=== PATIENT | male | born 1960 | race Caucasian/White ===

== ENCOUNTER 2019-09-04 12:53 | Observation (INO) | payer OTHER ==
[~2019-09-04] VITALS: Ht 182.9 cm; Wt 105.3 kg
[2019-09-04] MEDS ORDERED: ONDANSETRON PF 4 MG/2 ML VIAL. IV ONE (13:00)
--- NOTE | 2019-09-04 13:05 | EKG ---
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
[2019-09-04 13:27] LABS: BASO % 0 % (0-3); EOS % 0 % (0-3); HEMATOCRIT 47.8 % (39.0-53.0); HEMOGLOBIN 16.4 g/dL (13.0-17.5); LYMPH # 1.5 x10^3/uL (1.0-4.8); LYMPH % 17 % (24-48); MEAN CORPUSCULAR HEMOGLOBIN 30 pg (25-35); MEAN CORPUSCULAR HGB CONC 34 g/dL (31-37); MEAN CORPUSCULAR VOLUME 88 fL (79-100); MONO # 0.6 x10^3/uL (0.0-1.1); MONO % 7 % (0-9); NEUT # 6.6 x10^3uL (1.8-7.7); NEUT % 75 % (31-73); PLATELET COUNT 281 x10^3/uL (140-400); RED BLOOD COUNT 5.45 x10^6/uL (4.30-5.70); RED CELL DISTRIBUTION WIDTH 13.7 % (11.5-14.5); WHITE BLOOD COUNT 8.7 x10^3/uL (4.0-11.0)
[2019-09-04 13:28] LABS: CALCIUM 10.2 mg/dL (8.5-10.1); CREATININE 1.2 mg/dL (0.7-1.3); POTASSIUM 4.2 mmol/L (3.5-5.1)
[2019-09-04 13:40] LABS: ALBUMIN 4.4 g/dL (3.4-5.0); ALBUMIN/GLOBULIN RATIO 1.3 (1.0-1.7); TOTAL BILIRUBIN 0.6 mg/dL (0.2-1.0); TOTAL PROTEIN 7.8 g/dL (6.4-8.2)
--- NOTE | 2019-09-04 13:57 | RAD ---
EXAM: CHEST AP ONLY INDICATION: Reason: chest pain / Spl. Instructions: / History: . TECHNIQUE: Single view COMPARISON: 05/05/2019 chest x-ray FINDINGS: The heart size is normal. The great vessels appear unremarkable. There is no hilar or mediastinal mass. The lungs are clear. There is no pleural effusion or pneumothorax. There are no significant osseous abnormalities. IMPRESSION: No active cardiopulmonary disease. Electronically signed by: Delroy Zepeda MD (09/04/2019 1:55 PM) [id number]
--- NOTE | 2019-09-04 14:14 | PHYS DOC ---
Past History Past Medical History: Dementia, Hypertension, Stroke Past Surgical History: No Surgical History Alcohol Use: None General Adult EDM: Chief Complaint: CHEST PAIN HPI: HPI: Patient is a 58-year-old male who presents with approximately 1 hour of left- sided chest pain that he describes as a tightness that radiates into his left arm. He became a little bit short of breath. He denies any nausea or diaphoresis. He states he is never really had any thing like this happen before. He was given aspirin by EMS in route. He is currently pain-free. [] Review of Systems: Review of Systems: Constitutional: Denies fever or chills Eyes: Denies change in visual acuity HENT: Denies nasal congestion or sore throat Respiratory: Denies cough or shortness of breath Cardiovascular: Per HPI GI: Denies abdominal pain, nausea, vomiting, bloody stools or diarrhea : Denies dysuria Musculoskeletal: Denies back pain or joint pain Integument: Denies rash Neurologic: Denies headache, focal weakness or sensory changes Endocrine: Denies polyuria or polydipsia Lymphatic: Denies swollen glands Psychiatric: Denies depression or anxiety Heart Score: HEART Score for Chest Pain: HEART Score for Chest Pain Response (Comments) Value History Highly Suspicious 2 ECG Nonspecific Repolarizatio 1 Age >45 - < 65 1 Risk Factors 1 or 2 Risk Factors 1 Troponin < Normal Limit 0 Total 5 Risk Factors: Risk Factors: DM, Current or recent (<one month) smoker, HTN, HLP, family history of CAD, obesity. Risk Scores: Score 0 - 3: 2.5% MACE over next 6 weeks - Discharge Home Score 4 - 6: 20.3% MACE over next 6 weeks - Admit for Clinical Observation Score 7 - 10: 72.7% MACE over next 6 weeks - Early Invasive Strategies Current Medications: Current Meds: Current Medications Medications (Trade) Dose Ordered Sig/Ariane Start Time Stop Time Status Last Admin Dose Admin Fentanyl Citrate (Fentanyl 2ml Vial) 50 mcg 1X ONCE 09/04/19 13:00 09/04/19 13:07 DC Ondansetron HCl (Zofran) 4 mg 1X ONCE 09/04/19 13:00 09/04/19 13:07 DC Allergies: Allergies: Allergies Coded Allergies Type Severity Reaction Last Updated Verified No Known Drug Allergies 05/05/19 No Physical Exam: PE: Constitutional: Well developed, well nourished, no acute distress, non-toxic domi earance. [] HENT: Normocephalic, atraumatic, bilateral external ears normal, oropharynx moist, no oral exudates, nose normal. [] Eyes: PERRLA, EOMI, conjunctiva normal, no discharge. [] Neck: Normal range of motion, no tenderness, supple, no stridor. [] Cardiovascular:Heart rate regular rhythm, no murmur [] Lungs & Thorax: Bilateral breath sounds clear to auscultation [] Abdomen: Bowel sounds normal, soft, no tenderness, no masses, no pulsatile masses. [] Skin: Warm, dry, no erythema, no rash. [] Back: No tenderness, no CVA tenderness. [] Extremities: No tenderness, no cyanosis, no clubbing, ROM intact, no edema. [] Neurologic: Alert and oriented X 3, normal motor function, normal sensory function, no focal deficits noted. [] Psychologic: Affect normal, judgement normal, mood normal. [] Current Patient Data: Labs: Laboratory Tests Test 09/04/19 12:53 White Blood Count 8.7 x10^3/uL (4.0-11.0) Red Blood Count 5.45 x10^6/uL (4.30-5.70) Hemoglobin 16.4 g/dL (13.0-17.5) Hematocrit 47.8 % (39.0-53.0) Mean Corpuscular Volume 88 fL (79-100) Mean Corpuscular Hemoglobin 30 pg (25-35) Mean Corpuscular Hemoglobin Concent 34 g/dL (31-37) Red Cell Distribution Width 13.7 % (11.5-14.5) Platelet Count 281 x10^3/uL (140-400) Neutrophils (%) (Auto) 75 % (31-73) H Lymphocytes (%) (Auto) 17 % (24-48) L Monocytes (%) (Auto) 7 % (0-9) Eosinophils (%) (Auto) 0 % (0-3) Basophils (%) (Auto) 0 % (0-3) Neutrophils # (Auto) 6.6 x10^3uL (1.8-7.7) Lymphocytes # (Auto) 1.5 x10^3/uL (1.0-4.8) Monocytes # (Auto) 0.6 x10^3/uL (0.0-1.1) Eosinophils # (Auto) 0.0 x10^3/uL (0.0-0.7) Basophils # (Auto) 0.0 x10^3/uL (0.0-0.2) Sodium Level 143 mmol/L (136-145) Potassium Level 4.2 mmol/L (3.5-5.1) Chloride Level 104 mmol/L (98-107) Carbon Dioxide Level 29 mmol/L (21-32) Anion Gap 10 (6-14) Blood Urea Nitrogen 22 mg/dL (8-26) Creatinine 1.2 mg/dL (0.7-1.3) Estimated GFR (Cockcroft-Gault) 62.0 BUN/Creatinine Ratio 18 (6-20) Glucose Level 110 mg/dL (70-99) H Calcium Level 10.2 mg/dL (8.5-10.1) H Total Bilirubin 0.6 mg/dL (0.2-1.0) Aspartate Amino Transferase (AST) 18 U/L (15-37) Alanine Aminotransferase (ALT) 38 U/L (16-63) Alkaline Phosphatase 80 U/L (46-116) Troponin I Quantitative < 0.017 ng/mL (0-0.055) SO-Kcz-F-Type Natriuretic Peptide 46 pg/mL (0-124) Total Protein 7.8 g/dL (6.4-8.2) Albumin 4.4 g/dL (3.4-5.0) Albumin/Globulin Ratio 1.3 (1.0-1.7) Lipase 165 U/L (73-393) Vital Signs: Vital Signs Date Time Temp Pulse Resp B/P (MAP) Pulse Ox O2 Delivery O2 Flow Rate FiO2 09/04/19 13:01 97.7 65 18 178/90 (119) 98 EKG: EKG: EKG: Normal sinus rhythm rate of [address]-T changes [] Radiology/Procedures: Radiology/Procedures: [] Impressions: PROCEDURE: CHEST AP ONLY EXAM: CHEST AP ONLY INDICATION: Reason: chest pain / Spl. Instructions: / History: . TECHNIQUE: Single view COMPARISON: 05/05/2019 chest x-ray FINDINGS: The heart size is normal. The great vessels appear unremarkable. There is no hilar or mediastinal mass. The lungs are clear. There is no pleural effusion or pneumothorax. There are no significant osseous abnormalities. IMPRESSION: No active cardiopulmonary disease. Course & Med Decision Making: Course & Med Decision Making Pertinent Labs and Imaging studies reviewed. (See chart for details) [] Dragon Disclaimer: Dragon Disclaimer: This electronic medical record was generated, in whole or in part, using a voice recognition dictation system. Departure Departure: Impression: Primary Impression: Chest pain Qualified Codes: R07.9 - Chest pain, unspecified Disposition: 09 ADMITTED INPATIENT Condition: STABLE Referrals: LUKE DELGADO (PCP) Justification of Admission: Justification of Admission: Justification of Admission Dx: Yes Angina: New-Onset KEE GILBERT DO Sep 04, 2019 14:14
[2019-09-04] MEDS ORDERED: NITROGLYCERIN SUBLINGUAL 0.4 MG BOTTLE OF 25. SL PRN (14:15)
[2019-09-04] MEDS ORDERED: ONDANSETRON PF 4 MG/2 ML VIAL. IVP PRN (14:15)
[2019-09-04] MEDS ORDERED: ACETAMINOPHEN 325 MG TABLET PO PRN (14:15)
[2019-09-04 15:14] VITALS: BP 176/120
[2019-09-04] MEDS ORDERED: LISINOPRIL 20 MG TABLET PO SCH (16:15)
[2019-09-04 16:30] VITALS: BP 123/81
[2019-09-04 19:20] VITALS: BP 124/78
[2019-09-04 22:45] VITALS: BP 112/73
[2019-09-05 06:05] VITALS: BP 142/88
[2019-09-05 08:52] VITALS: BP 142/88
[2019-09-05] MEDS ORDERED: LISINOPRIL 20 MG TABLET PO SCH (09:00)
--- NOTE | 2019-09-05 09:14 | HP ---
ADMIT DATE: 09/04/2019 CHIEF COMPLAINT: Chest pain. HISTORY OF PRESENT ILLNESS: This is a 58-year-old gentleman with limited capabilities. He had 1 hour of left-sided chest pain, tightness radiating to the left arm. He was a little short of breath. There was an anxiety component. He had a stroke about 4 months ago. He really has significant dementia. He does not remember much. He has hypertension, previous stroke and noncompliance. He does not have a local doctor. Supposedly, he is a , but he has not signed up with [place] for benefits. He was given an aspirin en route. His blood pressure was markedly high at 170-180 systolic. He was admitted then for serial enzymes. A chest x-ray on admission was clear. EKG was normal and nondiagnostic. PAST MEDICAL HISTORY: Significant for admission here in April of this year with a completed stroke. Deficits includes worsening confusion, dementia. No focal deficit. He has hypertension, but he has been noncompliant. MEDICATIONS: He is not on any prescription medications. ALLERGIES: He has no recorded drug allergies. I asked him what blood pressure med he was supposed to be taking, he could not remember. FAMILY HISTORY: He could not give any details. His father supposedly in his 60s. He has no idea what his mother of or the age or the time of . He is single. He has a living arrangement with 2 young ladies that may or may not be related. Again, I could not get further details. He does not have a job, he does not have a car and he has been living with these people. SOCIAL HISTORY: He states he is a nonsmoker, nondrinker. REVIEW OF SYSTEMS: Significant for localized chest pain. He could not give me much further details. PHYSICAL EXAMINATION: GENERAL: When I saw him, this is a pleasant, but confused gentleman. VITAL SIGNS: Initially showed a blood pressure of 170 systolic. By the time I saw him the next day with treatment, it was down to 142/88. Pulse is 60 and regular, temperature 97.9 degrees Fahrenheit, oxygen saturation 98% on room air. HEENT: Head is without trauma. Pupils are reactive. Sclerae nonicteric. Oropharynx is clear. NECK: Supple, no bruits identified. LUNGS: Clear. CARDIOVASCULAR: Showed regular heart tones. Peripheral pulses are palpable and full. ABDOMEN: Soft, scaphoid, nontender. EXTREMITIES: Show no cyanosis or edema. NEUROLOGIC: Focally intact. PERTINENT LABORATORY AND X-RAY STUDIES: Hemoglobin is 16.4 g/dL with a white count of 8700. Chemistry panel: Normal BUN and creatinine, electrolytes. Nonfasting blood sugar of 110. The first set of cardiac enzymes negative for coronary ischemia. The resting 12-lead electrocardiogram showed a sinus rhythm without any acute changes. The chest x-ray was clear without any acute cardiopulmonary process. ASSESSMENT: 1. A 58-year-old gentleman with atypical chest pain, most likely noncardiac in nature. 2. Old cerebrovascular accident with cognitive deficit. 3. Multi-infarct dementia. 4. Labile hypertension with noncompliance. PLAN: 1. Observation status. 2. Serial enzymes. 3. Blood pressure control. I have initiated lisinopril. 4. Baby aspirin 1 daily. CORKY STOLL MD DR: CHER/gilson JOB#: [id number] / [id number]
--- NOTE | 2019-09-05 09:28 | DS ---
DATE OF DISCHARGE: 09/05/2019 ATTENDING PHYSICIAN: Dr. Stoll. FINAL DISCHARGE DIAGNOSES: 1. Atypical left sided chest pain, resolved. 2. Coronary ischemia ruled out. 3. Old completed stroke with multi-infarct dementia. 4. Labile hypertension. 5. Noncompliance of meds. HISTORY AND PHYSICAL: The patient is a 58-year-old gentleman admitted through the ED with atypical left-sided chest pain. No recent trauma. He was brought in overnight for observation. The patient has a previous stroke. He is hypertensive with poor control. He has been noncompliant and does not have a local physician. In the ED, his chest x-ray and 12-lead EKG was entirely normal. First set of cardiac enzymes were negative. PHYSICAL EXAMINATION: Please see the dictated note. PERTINENT LABORATORY AND X-RAY STUDIES: EKG and chest x-ray were indeed normal. Three sets of cardiac enzymes serially showed no evidence of coronary ischemia or myocardial necrosis. Pain subsided. Blood pressures improved with initiation of lisinopril. By the second hospital day, his lungs were clear, vital signs stable, blood pressure was down. He was ready for discharge. Evidently, this gentleman is a . He has benefits, has not applied for them. I strongly recommended that he get a primary care physician. He was discharged then with a prescription for lisinopril 40 mg p.o. daily, 30 with 1 refill for 60 days, enough time to have him establish as a [facility], in addition to 1 baby aspirin daily. He was discharged then from our hospital in stable condition with explicit instructions and followup care. CORKY STOLL MD DR: CHER/gilson JOB#: [id number] / [id number]
[2019-09-05] MEDS ORDERED: LISINOPRIL 20 MG TABLET PO ONE (10:30)
== END 2019-09-05 09:15 | disposition home or self-care (01) ==
LOC: ER 12:53 → 1 SOUTH 14:20 → MERGE 14:20
PROVIDERS: ADMIT Hospitalist; ATTEND Hospitalist
DX: R07.89 Other chest pain (principal); I10 Essential (primary) hypertension; F01.50 Vascular dementia, unspecified severity, without behavioral disturbance, psychotic disturbance, mood disturbance, and anxiety; I69.311 Memory deficit following cerebral infarction; F41.9 Anxiety disorder, unspecified; Z91.14 Patient's other noncompliance with medication regimen; Z79.899 Other long term (current) drug therapy
CPT/HCPCS: 36415; 71045; 80053; 83690; 83880; 84484; 85025; 93005; 99285; G0378; G0379